=== PATIENT | male | born 1960 | race Caucasian/White ===

== ENCOUNTER 2017-02-19 21:25 | Emergency (ER) | payer OTHER ==
[2017-02-19 21:31] VITALS: RESP 18
[2017-02-19 21:33] VITALS: TEMP 98.2
--- NOTE | 2017-02-19 22:50 | EDPHY ---
H & P Stated Complaint: high BP, blurred vision, SANTOYO, fatigue Time Seen by Provider: 02/19/17 22:24 HPI/ROS: Chief Complaint: High blood pressure, fatigue, hypertension HPI: 56-year-old male known to Dr. Shine Conte with a history of labile hypertension. Patient states for the last 2-3 months he has been having worsening control of his blood pressure. He has been having intermittent headaches for the last 2 months. The point the gets severe. These have been attributed to his hypertension. He has seen his primary care physician several times and is awaiting follow-up with a criminal profiler next week. He was also seen emergency department in [facility] on the 02 Feb 2017. That time his blood pressure was 220/120. He had a CT scan of his head, blood work an ECG which all which were normal. Patient also had blood work done 2 days ago which was again normal. This evening he is headache has been persistent. Is about to a 7/10. It is unchanged from his headaches that he has been having for the last 2 months. Denies any nausea or vomiting. No fevers or chills. No palpitations. No chest pain or shortness of breath. ROS: 10 point Review of Systems is negative except as noted in the HPI. PMH: Hypertension Social History: No smoking Family History: non-contributory Physical Exam: Gen: Awake, Alert, No Distress HEENT: Nose: no rhinorrhea Eyes: PERRLA, EOMI Mouth: Moist mucosa Neck: Supple, no JVD Chest: nontender, lungs clear to auscultation Heart: S1, S2 normal, no murmur Abd: Soft, non-tender, no guarding Back: no CVA tenderness, no midline tenderness Ext: no edema, non-tender Skin: no rash Neuro: CN II-XII intact, Sensation grossly intact, Strength 5/5 in bilateral upper and lower extremities - Personal History Current Tetanus/Diphtheria Vaccine: Yes Current Tetanus Diphtheria and Acellular Pertussis (TDAP): Yes Tetanus Vaccine Date: 2007 - Medical/Surgical History Hx Asthma: No Hx Chronic Respiratory Disease: No Hx Diabetes: No Hx Cardiac Disease: No Hx Renal Disease: No Hx Cirrhosis: No Hx Alcoholism: No Hx HIV/AIDS: No Hx Splenectomy or Spleen Trauma: No Other PMH: HTN, - Social History Smoking Status: Never smoked Constitutional: Initial Vital Signs Heart Rate 73 02/19/17 21:28 Respiratory Rate 18 02/19/17 21:28 Blood Pressure 165/110 H 02/19/17 21:28 O2 Sat (%) 93 02/19/17 21:28 O2 Delivery Mode Room Air Allergies/Adverse Reactions: Sulfa (Sulfonamide Antibiotics) Allergy (Verified 02/19/17 21:31) Home Medications: Medication Instructions Recorded Losartan-Hctz 100-25 mg Tab 02/19/17 Medical Decision Making ED Course/Re-evaluation: 56-year-old male with hypertension. Patient's blood pressure is 1/60 systolic here. His symptoms are improved. This is after no treatment. I had a long conversation and I agree that follow up with Cardiology would be useful. He had blood work 2 days ago with a normal renal function at that time. I reviewed these results. There is no evidence of end-organ damage. He has had persistent headache since this started for the last 2 months and had a normal CT scan emergency department visit a couple weeks ago. Plan will be to discharge with him to follow up with his criminal profiler and his primary care physician as scheduled. Patient understands the risks and benefits associated with this. He is in agreement that further testing evaluations probably not indicated at this time. He will follow up and return for any concerns. Departure - Departure Disposition: Home, Routine, Self-Care Clinical Impression: Hypertension Condition: Good Instructions: Hypertension (ED) Additional Instructions: Return emergency department for persistent severe headache, vision changes, confusion, nausea, vomiting, chest pain, shortness of breath, or any other concerns. Follow up with primary care physician on Tuesday and call the cardiology office Tuesday morning to arrange in appointment follow-up. Referrals: SHINE CONTE [Primary Care Provider] - As per Instructions
[2017-02-19 22:58] VITALS: BP 158/106; PULSE 58; O2SAT 94
== END 2017-02-19 23:03 | disposition home or self-care (01) ==
DX: I10 Essential (primary) hypertension (principal)